=== PATIENT | male | born 1945 | race African-American/Black ===

== ENCOUNTER 2025-06-28 01:12 | Inpatient (IN) | payer MEDICARE, OTHER ==
[~2025-06-28] VITALS: Ht 182.9 cm; Wt 75.0 kg
[~2025-06-28 01:12] MED LIST: AMLO-258 PO; ASPI81TA87 PO; ATOR20TA PO; CLOP75TA32 PO
[2025-06-28 01:40] LABS: PLATELET COUNT (AUTO) 124 K/uL (150-450); RED BLOOD CELL COUNT(AUTO) 4.00 MIL/uL (4.50-5.90); RED CELL DISTRIBUTION WIDTH 14.5 % (11.5-14.5); WHITE BLOOD COUNT (AUTO) 3.4 K/uL (4.5-11.0)
[2025-06-28 02:21] LABS: CALCIUM, TOTAL 8.4 mg/dL (8.8-10.5); CREATININE 1.09 mg/dL (0.60-1.30); GLOMERULAR FILTR. RATE CALC > 60 mL/min (>60); GLUCOSE,RANDOM 186 mg/dL (70-110); SODIUM SERUM 143 mmol/L (136-145); UREA NITROGEN, BLOOD 17 mg/dL (7-18)
[2025-06-28 03:28] LABS: COVID AG,FIA SOURCE NASAL SWAB
[2025-06-28] MEDS ORDERED: ZOLPIDEM TARTRATE 10 MG TABLET PO PRN (03:45)
[2025-06-28 03:53] LABS: SARS-COV2 (COVID) ANTIGEN,FIA Negative (Negative)
[2025-06-28 05:16] VITALS: BP 159/71; PULSE 58; RESP 20; TEMP 97.8; O2SAT 100
[2025-06-28] MEDS ORDERED: ACETAMINOPHEN 325 MG TABLET PO PRN (06:15)
[2025-06-28] MEDS ORDERED: DOCUSATE SODIUM 100 MG CAPSULE PO PRN (06:15)
[2025-06-28] MEDS ORDERED: ONDANSETRON 4 MG TABLET PO PRN (06:15)
[2025-06-28] MEDS ORDERED: PETROLATUM,WHITE 28 GM JELLY TP PRN (06:15)
[2025-06-28] MEDS ORDERED: LOPERAMIDE HCL 2 MG CAPSULE PO PRN (06:15)
[2025-06-28] MEDS ORDERED: GuaiFENesin/D-METHORPHAN [SUGAR-FREE] 200-20MG/10 ML SYRUP UDCUP PO PRN (06:15)
[2025-06-28] MEDS ORDERED: ALBUTEROL SULFATE HFA 90 MCG/PUFF 8 GM INHALER IH PRN (06:15)
[2025-06-28] MEDS ORDERED: MAGNESIUM HYDROXIDE SUSPENSION 30 ML UDCUP PO PRN (06:15)
[2025-06-28] MEDS ORDERED: MAG HYDROX/ALUMINUM HYD/SIMETH ES 30 ML SUSPENSION UDCUP PO PRN (06:15)
[2025-06-28] MEDS ORDERED: NICOTINE 14 MG/24 HOUR PATCH TD PRN (06:15)
[2025-06-28] MEDS: POTASSIUM CHLORIDE 20 MEQ ER TABLET PO ONE (06:26)
[2025-06-28] MEDS: ASPIRIN 81 MG CHEWABLE TABLET PO SCH (08:24)
[2025-06-28] MEDS: CLOPIDOGREL BISULFATE 75 MG TABLET PO SCH (08:24)
[2025-06-28 11:31] VITALS: BP 129/65; PULSE 60; RESP 18; TEMP 97.8; O2SAT 98
[2025-06-28 20:49] VITALS: BP 130/74; PULSE 71; RESP 18; TEMP 97.9; O2SAT 97
[2025-06-28] MEDS: MIRTAZAPINE 15 MG TABLET PO SCH (21:06)
[2025-06-29 09:26] LABS: CHOL/HDL RATIO 1.8 (4.2-7.3); LDL CHOL (CALC.) 43.0 mg/dL (0-130)
[2025-06-29 10:52] VITALS: BP 141/74; PULSE 69; RESP 18; TEMP 97.8; O2SAT 96
[2025-06-29] MEDS: SERTRALINE HCL 50 MG TABLET PO SCH (13:07)
[2025-06-29] MEDS: ZINC OXIDE 20% 30 GM OINTMENT TP SCH (18:16)
[2025-06-29 21:12] VITALS: BP 126/68; PULSE 62; RESP 18; TEMP 98.2; O2SAT 96
[2025-06-30] MEDS ORDERED: SERT-158 PO (09:52)
[2025-06-30] MEDS ORDERED: QUET25TA PO (09:52)
[2025-06-30] MEDS ORDERED: MIRT-89 PO (09:52)
[2025-06-30] MEDS ORDERED: ZINC56.713 TP (09:53)
[2025-06-30 11:17] VITALS: BP 139/76; PULSE 63; RESP 17; TEMP 97.5; O2SAT 96
[2025-06-30 20:14] VITALS: RESP 18
[2025-07-01 09:04] VITALS: BP 146/96; PULSE 102; RESP 18; TEMP 97.7; O2SAT 96
== END 2025-07-01 12:45 | DRG 885 ==
LOC: EMS 01:13 → 3EX 04:33
PROVIDERS: ADMIT Psychiatry & Neurology Child & Adolescent Psychiatry; ATTEND Psychiatry & Neurology Child & Adolescent Psychiatry
PROC: GZ58ZZZ Individual Psychotherapy, Cognitive-Behavioral (ICD-10-PCS; principal; 2025-06-28)
PROC: GZ56ZZZ Individual Psychotherapy, Supportive (ICD-10-PCS; 2025-06-28)
DX: F29 Unspecified psychosis not due to a substance or known physiological condition (principal); D64.9 Anemia, unspecified; Z79.02 Long term (current) use of antithrombotics/antiplatelets; I10 Essential (primary) hypertension; E78.5 Hyperlipidemia, unspecified; E87.6 Hypokalemia; R73.9 Hyperglycemia, unspecified; L22 Diaper dermatitis; R21 Rash and other nonspecific skin eruption; Z20.822 Contact with and (suspected) exposure to COVID-19; Z79.899 Other long term (current) drug therapy; Z86.73 Personal history of transient ischemic attack (TIA), and cerebral infarction without residual deficits; Z79.82 Long term (current) use of aspirin
CPT/HCPCS: 80048; 80061; 83036; 84443; 85025; 87081; 99285; G0378; G0480

== ENCOUNTER 2025-07-01 15:10 | Inpatient (IN) | payer MEDICARE, OTHER ==
[~2025-07-01] VITALS: Ht 182.9 cm; Wt 67.6 kg
[~2025-07-01 15:10] MED LIST changes: -ATOR20TA PO; +MIRT-89 PO; +QUET25TA PO; +SERT-158 PO; +ZINC56.713 TP
[2025-07-01 15:51] LABS: PLATELET COUNT (AUTO) 150 K/uL (150-450); RED BLOOD CELL COUNT(AUTO) 4.34 MIL/uL (4.50-5.90); RED CELL DISTRIBUTION WIDTH 14.6 % (11.5-14.5); WHITE BLOOD COUNT (AUTO) 4.6 K/uL (4.5-11.0)
[2025-07-01 16:02] LABS: CALCIUM, TOTAL 8.6 mg/dL (8.8-10.5); CREATININE 0.95 mg/dL (0.60-1.30); GLOMERULAR FILTR. RATE CALC > 60 mL/min (>60); GLUCOSE,RANDOM 132 mg/dL (70-110); SODIUM SERUM 140 mmol/L (136-145); UREA NITROGEN, BLOOD 13 mg/dL (7-18)
[2025-07-01] MEDS ORDERED: ZOLPIDEM TARTRATE 10 MG TABLET PO PRN (17:30)
[2025-07-01 17:40] LABS: COVID AG,FIA SOURCE NASAL SWAB
[2025-07-01 18:14] LABS: SARS-COV2 (COVID) ANTIGEN,FIA Negative (Negative)
[2025-07-01] MEDS ORDERED: INFLUENZA VIRUS VACCINE TVS (6MO+) 2025-26/PF 45 MCG/0.5 ML SYRINGE IM. ONE (21:45)
[2025-07-01 22:13] VITALS: BP 146/73; PULSE 97; RESP 18; TEMP 98.3; O2SAT 99
[2025-07-02] MEDS ORDERED: GuaiFENesin/D-METHORPHAN [SUGAR-FREE] 200-20MG/10 ML SYRUP UDCUP PO PRN (07:30)
[2025-07-02] MEDS ORDERED: NICOTINE 14 MG/24 HOUR PATCH TD PRN (07:30)
[2025-07-02] MEDS ORDERED: PETROLATUM,WHITE 28 GM JELLY TP PRN (07:30)
[2025-07-02] MEDS ORDERED: ACETAMINOPHEN 325 MG TABLET PO PRN (07:30)
[2025-07-02] MEDS ORDERED: MAGNESIUM HYDROXIDE SUSPENSION 30 ML UDCUP PO PRN (07:30)
[2025-07-02] MEDS ORDERED: IBUPROFEN 400 MG TABLET PO PRN (07:30)
[2025-07-02] MEDS ORDERED: ALBUTEROL SULFATE HFA 90 MCG/PUFF 8 GM INHALER IH PRN (07:30)
[2025-07-02] MEDS ORDERED: ONDANSETRON 4 MG TABLET PO PRN (07:30)
[2025-07-02] MEDS ORDERED: DOCUSATE SODIUM 100 MG CAPSULE PO PRN (07:30)
[2025-07-02] MEDS ORDERED: LOPERAMIDE HCL 2 MG CAPSULE PO PRN (07:30)
[2025-07-02] MEDS ORDERED: MAG HYDROX/ALUMINUM HYD/SIMETH ES 30 ML SUSPENSION UDCUP PO PRN (07:30)
[2025-07-02] MEDS: ASPIRIN 81 MG CHEWABLE TABLET PO SCH (08:40)
[2025-07-02] MEDS: CLOPIDOGREL BISULFATE 75 MG TABLET PO SCH (08:41)
[2025-07-02] MEDS: ZINC OXIDE 20% 30 GM OINTMENT TP SCH (08:42)
[2025-07-02 09:31] VITALS: BP 121/74; PULSE 80; RESP 18; TEMP 97.7; O2SAT 95
[2025-07-02 12:44] LABS: CHOL/HDL RATIO 1.9 (4.2-7.3); LDL CHOL (CALC.) 51.0 mg/dL (0-130)
[2025-07-02 20:10] VITALS: BP 117/69; PULSE 73; RESP 18; TEMP 98.3; O2SAT 98
[2025-07-02] MEDS: MIRTAZAPINE 15 MG TABLET PO SCH (20:34)
[2025-07-03 08:13] VITALS: BP 113/61; PULSE 65; RESP 18; TEMP 97.6; O2SAT 97
[2025-07-03 08:22] LABS: PLATELET COUNT (AUTO) 127 K/uL (150-450); RED BLOOD CELL COUNT(AUTO) 4.12 MIL/uL (4.50-5.90); RED CELL DISTRIBUTION WIDTH 14.4 % (11.5-14.5); WHITE BLOOD COUNT (AUTO) 3.2 K/uL (4.5-11.0)
[2025-07-03 08:53] LABS: ASPARTATE AMINOTRANSFERASE 42 U/L (15-37); CALCIUM, TOTAL 8.4 mg/dL (8.8-10.5); CREATININE 0.90 mg/dL (0.60-1.30); GLOMERULAR FILTR. RATE CALC > 60 mL/min (>60); GLUCOSE,RANDOM 108 mg/dL (70-110); SODIUM SERUM 141 mmol/L (136-145); TOTAL PROTEIN, SERUM 6.9 g/dL (6.4-8.2); UREA NITROGEN, BLOOD 17 mg/dL (7-18)
[2025-07-03] MEDS: SERTRALINE HCL 50 MG TABLET PO SCH (09:00)
[2025-07-03 21:00] VITALS: BP 123/62; PULSE 62; RESP 18; TEMP 98.1; O2SAT 8
[2025-07-04 10:46] VITALS: BP 137/52; PULSE 57; RESP 16; TEMP 97.9; O2SAT 100
[2025-07-04 20:42] VITALS: BP 127/87; PULSE 65; RESP 18; TEMP 97.3; O2SAT 98
[2025-07-05 08:15] VITALS: BP 155/74; PULSE 69; RESP 18; TEMP 97; O2SAT 96
[2025-07-05 20:48] VITALS: BP 139/69; PULSE 74; RESP 18; TEMP 98.6; O2SAT 96
[2025-07-06 08:15] VITALS: BP 120/64; PULSE 66; RESP 18; TEMP 98.5; O2SAT 98
[2025-07-06 20:16] VITALS: BP 127/71; PULSE 71; RESP 18; O2SAT 98
[2025-07-07 09:19] VITALS: BP 120/69; PULSE 60; RESP 18; TEMP 97.5; O2SAT 97
[2025-07-07 20:59] VITALS: BP 119/60; PULSE 66; RESP 18; TEMP 97; O2SAT 96
[2025-07-08 14:11] VITALS: BP 145/80; PULSE 65; RESP 16; TEMP 97.9; O2SAT 96
[2025-07-08 20:47] VITALS: BP 125/70; PULSE 64; RESP 18; TEMP 97.9; O2SAT 96
[2025-07-09 09:52] VITALS: BP 136/70; PULSE 64; RESP 17; TEMP 98.3; O2SAT 97
[2025-07-09 20:09] VITALS: BP 125/96; PULSE 68; RESP 20; TEMP 97.5; O2SAT 97
[2025-07-10 10:23] VITALS: BP 124/78; PULSE 77; RESP 16; TEMP 97.9; O2SAT 98
[2025-07-10 21:11] VITALS: RESP 18
[2025-07-11 07:19] VITALS: BP 132/75; PULSE 79; RESP 18; TEMP 96.8; O2SAT 99
[2025-07-11 08:26] VITALS: BP 133/67; PULSE 62; RESP 16; TEMP 98.2; O2SAT 97
[2025-07-11 18:46] VITALS: BP 131/77; PULSE 71; RESP 17; TEMP 98; O2SAT 97
[2025-07-11 20:26] VITALS: BP 157/79; PULSE 74; RESP 18; TEMP 98.9; O2SAT 99
[2025-07-11 20:55] VITALS: BP 157/79; PULSE 74; RESP 18; TEMP 98.9; O2SAT 98
[2025-07-12 09:22] VITALS: BP 134/79; PULSE 76; RESP 16; TEMP 98.5; O2SAT 97
[2025-07-12 19:20] VITALS: BP 134/79; PULSE 76; RESP 16; TEMP 98.5; O2SAT 97
[2025-07-12 20:59] VITALS: BP 93/76; PULSE 65; RESP 18; TEMP 97.9; O2SAT 95
[2025-07-12 22:35] VITALS: BP 103/76; PULSE 65; RESP 18; TEMP 97.9; O2SAT 95
[2025-07-13 08:56] VITALS: BP 117/55; PULSE 61; RESP 18; TEMP 97.8; O2SAT 97
[2025-07-13 09:55] VITALS: BP 117/55; PULSE 61; RESP 18; TEMP 97.8; O2SAT 97
[2025-07-13 20:00] VITALS: BP 135/63; PULSE 67; RESP 18; TEMP 97.7; O2SAT 99
[2025-07-14 09:41] VITALS: BP 151/75; PULSE 59; RESP 18; TEMP 97.6; O2SAT 98
[2025-07-14 20:58] VITALS: BP 148/74; PULSE 92; RESP 18; TEMP 98.9; O2SAT 97
[2025-07-15 08:07] VITALS: BP 127/88; PULSE 62; RESP 17; TEMP 97.9; O2SAT 100
[2025-07-15 22:36] VITALS: BP 122/61; PULSE 65; RESP 18; TEMP 98.2; O2SAT 95
[2025-07-16 08:44] VITALS: BP 138/57; PULSE 60; RESP 18; TEMP 97.8; O2SAT 97
[2025-07-16 23:02] VITALS: BP 131/81; PULSE 77; RESP 18; TEMP 98.1; O2SAT 100
[2025-07-17 08:50] VITALS: BP 117/76; PULSE 87; RESP 16; TEMP 98.1; O2SAT 97
[2025-07-17 20:21] VITALS: BP 132/76; PULSE 77; RESP 18; TEMP 97.2; O2SAT 96
[2025-07-18 10:34] VITALS: BP 145/75; PULSE 63; RESP 18; TEMP 98.1; O2SAT 98
[2025-07-18 21:14] VITALS: BP 143/68; PULSE 63; RESP 18; TEMP 98.1; O2SAT 98
[2025-07-19 08:27] VITALS: BP 141/59; PULSE 58; RESP 18; TEMP 97.6; O2SAT 95
[2025-07-19 21:40] VITALS: BP 134/76; PULSE 66; RESP 18; TEMP 98.2; O2SAT 99
[2025-07-20 10:00] VITALS: BP 169/89; PULSE 75; RESP 18; O2SAT 97
[2025-07-20 20:56] VITALS: BP 153/82; PULSE 80; RESP 19; TEMP 98.3; O2SAT 100
[2025-07-21 09:20] VITALS: BP 113/69; PULSE 65; RESP 17; TEMP 97.7; O2SAT 98
[2025-07-21 21:44] VITALS: BP 122/88; PULSE 63; RESP 18; TEMP 97.4; O2SAT 100
[2025-07-22 18:39] VITALS: BP 113/69; PULSE 65; RESP 18; TEMP 98; O2SAT 100
[2025-07-22 20:56] VITALS: BP 136/59; PULSE 64; RESP 17; TEMP 97.6; O2SAT 100
== END 2025-07-22 23:30 | disposition short-term general hospital (02) | DRG 885 ==
LOC: EMS 15:10 → 3EX 20:18 → 3EI 07-19 12:42
PROVIDERS: ADMIT Psychiatry & Neurology Child & Adolescent Psychiatry; ATTEND Psychiatry & Neurology Child & Adolescent Psychiatry
PROC: GZHZZZZ Group Psychotherapy (ICD-10-PCS; principal; 2025-07-02)
PROC: GZ58ZZZ Individual Psychotherapy, Cognitive-Behavioral (ICD-10-PCS; 2025-07-02)
PROC: GZ56ZZZ Individual Psychotherapy, Supportive (ICD-10-PCS; 2025-07-02)
DX: F25.0 Schizoaffective disorder, bipolar type (principal); D64.9 Anemia, unspecified; D72.819 Decreased white blood cell count, unspecified; Z79.02 Long term (current) use of antithrombotics/antiplatelets; I10 Essential (primary) hypertension; E78.5 Hyperlipidemia, unspecified; Z20.822 Contact with and (suspected) exposure to COVID-19; E87.6 Hypokalemia; R73.9 Hyperglycemia, unspecified; Z86.73 Personal history of transient ischemic attack (TIA), and cerebral infarction without residual deficits; R73.03 Prediabetes
CPT/HCPCS: 80048; 80053; 80061; 83036; 84443; 85025; 87081; 99285; G0378; G0480

== ENCOUNTER 2025-07-22 23:16 | Inpatient (IN) | payer MEDICARE, OTHER ==
[~2025-07-22] VITALS: Ht 170.2 cm; Wt 69.1 kg
[2025-07-23 00:25] LABS: PLATELET COUNT (AUTO) 132 K/uL (150-450); RED BLOOD CELL COUNT(AUTO) 3.80 MIL/uL (4.50-5.90); RED CELL DISTRIBUTION WIDTH 14.7 % (11.5-14.5); WHITE BLOOD COUNT (AUTO) 4.1 K/uL (4.5-11.0)
[2025-07-23 00:37] LABS: CALCIUM, TOTAL 8.5 mg/dL (8.8-10.5); CREATININE 1.29 mg/dL (0.60-1.30); GLOMERULAR FILTR. RATE CALC > 60 mL/min (>60); GLUCOSE,RANDOM 108 mg/dL (70-110); SODIUM SERUM 142 mmol/L (136-145); UREA NITROGEN, BLOOD 19 mg/dL (7-18)
[2025-07-23 00:44] LABS: TROPONIN I-HIGH SENSITIVITY 30 ng/L (<76)
[2025-07-23 01:00] LABS: ASPARTATE AMINOTRANSFERASE 30.0 U/L (15-37); TOTAL PROTEIN, SERUM 6.5 g/dL (6.4-8.2)
[2025-07-23] MEDS ORDERED: ACETAMINOPHEN 325 MG TABLET PO PRN (06:30)
[2025-07-23] MEDS ORDERED: HYDROCODONE/ACETAMINOPHEN 5-325 MG TABLET PO PRN (06:30)
[2025-07-23] MEDS ORDERED: ONDANSETRON HCL 4 MG/2 ML VIAL IVP PRN (06:30)
[2025-07-23] MEDS ORDERED: ZOLPIDEM TARTRATE 5 MG TABLET PO PRN (06:30)
[2025-07-23] MEDS ORDERED: MORPHINE SULFATE 4 MG/ML SYRINGE IVP PRN (06:30)
[2025-07-23] MEDS: SODIUM CHLORIDE 0.9% 1,000 ML IV ONE (07:18)
[2025-07-23 08:20] VITALS: BP 138/62; PULSE 53; RESP 16; TEMP 97.5; O2SAT 98
[2025-07-23] MEDS: ASPIRIN 81 MG DR TABLET PO SCH (09:31)
[2025-07-23] MEDS: CLOPIDOGREL BISULFATE 75 MG TABLET PO SCH (09:31)
[2025-07-23] MEDS: PANTOPRAZOLE SODIUM 40 MG DR TABLET PO SCH (09:31)
[2025-07-23] MEDS: DOCUSATE SODIUM 100 MG CAPSULE PO SCH (09:31)
[2025-07-23] MEDS: HEPARIN SODIUM,PORCINE 5,000 UNITS/ML VIAL SQ SCH (09:32)
[2025-07-23 12:10] VITALS: BP 141/77; PULSE 77; RESP 16; TEMP 97.7; O2SAT 98
[2025-07-23 16:18] VITALS: BP 143/80; PULSE 79; RESP 18; TEMP 97.5; O2SAT 97
[2025-07-23 19:47] VITALS: BP 127/86; PULSE 67; RESP 18; TEMP 97.7; O2SAT 97
[2025-07-23 23:10] VITALS: BP 147/79; PULSE 70; RESP 17; TEMP 97.4; O2SAT 97
[2025-07-24] VITALS (8 sets, daily range): BP systolic 121–154; BP diastolic 69–86; PULSE 52–70; RESP 17–19; TEMP 97.3–98.6; O2SAT 95–98
[2025-07-24 08:58] LABS: PLATELET COUNT (AUTO) 138 K/uL (150-450); RED BLOOD CELL COUNT(AUTO) 4.28 MIL/uL (4.50-5.90); RED CELL DISTRIBUTION WIDTH 15.0 % (11.5-14.5); WHITE BLOOD COUNT (AUTO) 3.0 K/uL (4.5-11.0)
[2025-07-24 09:07] LABS: CALCIUM, TOTAL 8.7 mg/dL (8.8-10.5); CREATININE 1.03 mg/dL (0.60-1.30); GLOMERULAR FILTR. RATE CALC > 60 mL/min (>60); GLUCOSE,RANDOM 88 mg/dL (70-110); SODIUM SERUM 140 mmol/L (136-145); UREA NITROGEN, BLOOD 12 mg/dL (7-18)
[2025-07-24 09:15] LABS: TROPONIN I-HIGH SENSITIVITY 38 ng/L (<76)
[2025-07-24] MEDS: SERTRALINE HCL 50 MG TABLET PO SCH (09:45)
[2025-07-24] MEDS: MIRTAZAPINE 15 MG TABLET PO SCH (20:17)
[2025-07-25 04:18] VITALS: BP 128/70; PULSE 50; RESP 18; TEMP 98.1; O2SAT 96
[2025-07-25 06:48] LABS: PLATELET COUNT (AUTO) 136 K/uL (150-450); RED BLOOD CELL COUNT(AUTO) 3.95 MIL/uL (4.50-5.90); RED CELL DISTRIBUTION WIDTH 14.5 % (11.5-14.5); WHITE BLOOD COUNT (AUTO) 3.4 K/uL (4.5-11.0)
[2025-07-25 07:16] LABS: CALCIUM, TOTAL 8.8 mg/dL (8.8-10.5); CREATININE 1.20 mg/dL (0.60-1.30); GLOMERULAR FILTR. RATE CALC > 60 mL/min (>60); GLUCOSE,RANDOM 86 mg/dL (70-110); SODIUM SERUM 140 mmol/L (136-145); UREA NITROGEN, BLOOD 17 mg/dL (7-18)
[2025-07-25 07:31] VITALS: BP 142/75; PULSE 52; RESP 18; TEMP 98; O2SAT 97
[2025-07-25 11:41] VITALS: BP 149/69; PULSE 60; RESP 19; TEMP 97.7; O2SAT 96
[2025-07-25 14:24] VITALS: BP 138/70; PULSE 64; RESP 18; TEMP 98.2; O2SAT 96
[2025-07-25 15:06] VITALS: BP 138/70; PULSE 64; RESP 18; TEMP 98; O2SAT 98
[2025-07-25 20:07] VITALS: BP 143/69; PULSE 65; RESP 18; TEMP 97.3; O2SAT 95
[2025-07-26] VITALS (11 sets, daily range): BP systolic 110–154; BP diastolic 66–78; PULSE 53–77; RESP 16–18; TEMP 97.3–98.4; O2SAT 63–98
[2025-07-26 07:29] LABS: PLATELET COUNT (AUTO) 132 K/uL (150-450); RED BLOOD CELL COUNT(AUTO) 3.86 MIL/uL (4.50-5.90); RED CELL DISTRIBUTION WIDTH 14.6 % (11.5-14.5); WHITE BLOOD COUNT (AUTO) 3.1 K/uL (4.5-11.0)
[2025-07-26 07:47] LABS: CALCIUM, TOTAL 8.7 mg/dL (8.8-10.5); CREATININE 1.15 mg/dL (0.60-1.30); GLOMERULAR FILTR. RATE CALC > 60 mL/min (>60); GLUCOSE,RANDOM 84 mg/dL (70-110); SODIUM SERUM 139 mmol/L (136-145); UREA NITROGEN, BLOOD 16 mg/dL (7-18)
[2025-07-26 08:39] LABS: APPEARANCE,URINE CLEAR (CLEAR); GLUCOSE, URINE (UA) NEGATIVE (NEGATIVE); LEUKOCYTE ESTERASE ,URINE NEGATIVE (NEGATIVE); NITRATE,URINE NEGATIVE (NEGATIVE); OCCULT BLOOD,URINE NEGATIVE (NEGATIVE); SPECIFIC GRAVITIY, URINE 1.015 (1.003-1.030)
[2025-07-27 04:00] VITALS: BP 109/79; PULSE 53; RESP 17; TEMP 97.5; O2SAT 97
[2025-07-27 07:47] VITALS: BP 106/66; PULSE 52; RESP 18; TEMP 97.9; O2SAT 97
[2025-07-27 15:48] VITALS: BP 132/75; PULSE 57; RESP 18; TEMP 97.9; O2SAT 98
[2025-07-27 20:04] VITALS: BP 132/76; PULSE 62; RESP 18; TEMP 97.2; O2SAT 95
[2025-07-28 04:22] VITALS: BP 140/56; PULSE 53; RESP 18; TEMP 97.5; O2SAT 97
[2025-07-28 07:48] VITALS: BP 139/64; PULSE 51; RESP 18; TEMP 97.7; O2SAT 97
[2025-07-29 00:28] VITALS: BP 147/75; PULSE 61; RESP 20; TEMP 97.9; O2SAT 99
[2025-07-29 04:23] VITALS: BP 181/87; PULSE 68; RESP 18; TEMP 97.7; O2SAT 98
[2025-07-29 05:15] VITALS: BP 186/84; PULSE 61
[2025-07-29 07:47] VITALS: BP 159/88; PULSE 66; RESP 18; TEMP 97.5; O2SAT 100
[2025-07-29] MEDS: LOSARTAN POTASSIUM 25 MG TABLET PO SCH (09:27)
[2025-07-29 11:00] VITALS: BP 130/76; RESP 18
[2025-07-29 21:09] VITALS: BP 140/67; PULSE 69; RESP 18; TEMP 98.4; O2SAT 98
[2025-07-30 05:13] VITALS: BP 137/62; PULSE 63; RESP 20; TEMP 98.5; O2SAT 97
[2025-07-30] MEDS: MAGNESIUM HYDROXIDE SUSPENSION 30 ML UDCUP PO PRN (05:52)
[2025-07-30 08:05] VITALS: BP 136/70; PULSE 68; RESP 18; TEMP 98.2; O2SAT 98
[2025-07-30 16:50] VITALS: BP 115/65; PULSE 60; RESP 18; TEMP 98.5; O2SAT 95
[2025-07-30] MEDS: BISACODYL 10 MG RECTAL RECTAL SUPPOSITORY PR PRN (17:24)
[2025-07-30 19:29] VITALS: BP 119/63; PULSE 62; RESP 18; TEMP 98.1; O2SAT 95
[2025-07-31 04:02] VITALS: BP 111/61; PULSE 60; RESP 18; TEMP 99.1; O2SAT 96
[2025-07-31 08:00] VITALS: BP 125/83; PULSE 78; RESP 19; TEMP 97.9; O2SAT 97
[2025-07-31] MEDS ORDERED: LOSA-381 PO (16:41)
== END 2025-07-31 21:07 | DRG 74 ==
LOC: EMS 23:16 → EDH 07-23 01:50 → 5N 07-23 08:17 → 6S 07-26 14:40
PROVIDERS: ADMIT Internal Medicine; ATTEND Internal Medicine
DX: G90.89 Other disorders of autonomic nervous system (principal); I16.1 Hypertensive emergency; I65.22 Occlusion and stenosis of left carotid artery; I35.0 Nonrheumatic aortic (valve) stenosis; F32.A Depression, unspecified; F25.9 Schizoaffective disorder, unspecified; I10 Essential (primary) hypertension; E78.5 Hyperlipidemia, unspecified; R00.1 Bradycardia, unspecified; G47.00 Insomnia, unspecified; I95.9 Hypotension, unspecified; I35.1 Nonrheumatic aortic (valve) insufficiency; R07.9 Chest pain, unspecified; F25.0 Schizoaffective disorder, bipolar type; I25.2 Old myocardial infarction; Z79.899 Other long term (current) drug therapy; Z86.73 Personal history of transient ischemic attack (TIA), and cerebral infarction without residual deficits; Z88.8 Allergy status to other drugs, medicaments and biological substances
CPT/HCPCS: 70450; 71045; 80048; 80076; 81003; 83880; 84443; 84484; 85025; 85610; 85730; 87081; 93005; 93306; 93880; 96360; 96372; 99285; J1644; 36415-L1; 36415-TC